=== PATIENT | male | born 1985 | race American Indian/Alaskan Native ===

== ENCOUNTER 2023-07-21 15:05 | Outpatient (CLI) | payer OTHER ==
--- NOTE | 2023-07-21 16:04 | Sleep Patient Instructions ---
Sleep Center Visit Summary - Patient Visit Information Reason for Visit: Initial consult for evaluation of sleep disordered breathing and other sleep issues. - Patient Instructions Instructions Attached: Sleep Study, Sleep Study Home Monitor Additional Instructions: You will be completing a sleep study, either an in-lab polysomnography (PSG) or home sleep study (HST). You will follow-up in the sleep care office after the sleep study is completed to hear the results and talk about therapy, if needed. You will be called by our office staff to schedule this appointment, but you may contact us with any questions. - Clinic Information Contact: [facility] [address] [place] [id number] [email or web address] T: [phone]
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
[2023-07-21 16:21] VITALS: BP 157/105; O2SAT 96
== END 2023-07-21 15:06 | disposition home or self-care (01) ==
LOC: SC 15:05
PROVIDERS: ATTEND Nurse Practitioner Family
DX: R06.83 Snoring (principal); G47.8 Other sleep disorders; R06.81 Apnea, not elsewhere classified; E66.9 Obesity, unspecified; Z68.36 Body mass index [BMI] 36.0-36.9, adult; R51.9 Headache, unspecified; R41.89 Other symptoms and signs involving cognitive functions and awareness; G47.10 Hypersomnia, unspecified; Z87.891 Personal history of nicotine dependence
CPT/HCPCS: 99203; 99212

== ENCOUNTER 2023-08-12 20:34 | Outpatient (CLI) | payer OTHER | END 2023-08-12 20:35 | disposition home or self-care (01) | LOC: SC 20:34 | PROVIDERS: ATTEND Nurse Practitioner Family | DX: G47.33 Obstructive sleep apnea (adult) (pediatric) (principal); G47.61 Periodic limb movement disorder | CPT/HCPCS: 95810 ==

== ENCOUNTER 2023-09-07 15:02 | Outpatient (CLI) | payer OTHER ==
--- NOTE | 2023-09-07 15:26 | Sleep Patient Instructions ---
Sleep Center Visit Summary - Patient Visit Information Reason for Visit: Sleep study follow-up - Patient Instructions Instructions Attached: CPAP Additional Instructions: You are being started on CPAP therapy with pressure setting at 4-15 cmH2O. You will need to call the sleep care office to set up your follow up once you have your CPAP machine to check compliance and response to therapy at that time. You may call the office with any concerns about pressure feeling too low or too much for adjustment, if needed. You should contact DME supplier for any questions or concerns about mask or equipment. Please call office to schedule a follow up appointment in the sleep care office one month after obtaining new device. - Clinic Information Contact: [facility] [address] [place] [address] [email or web address] T: [phone]
--- NOTE | 2023-09-07 15:29 | SLEEP CARE CONSULTATION ---
Information from patient questionnaire entered by Tameka Chiu. I have reviewed and concur with the information entered by Tameka Chiu. This document represents the service I personally performed and the decisions made by me, Eda Maguire ARNP. History of Present Illness Service Date and Time: 09/07/2023 1502 Initial [place] Sleepiness Scale score: 15 (07/21/23) Current [place] Sleepiness Scale score: 19 (09/07/23) Additional HPI information: YASSINE MARVIN returns for follow up and results of the recently performed polysomnography. The sleep study showed mild obstructive sleep apnea with an average AHI of 7.1 and paras oxygen saturation of 84%. He also had mild PLMs not contributing to sleep fragmentation. I explained the pathophysiology behind obstructive sleep apnea. We then spent quite a bit of time discussing different treatment options. For mild obstructive sleep apnea, surgery and oral appliance are alternatives to nasal CPAP therapy but in moderate or severe cases, nasal CPAP is the most effective and reliable treatment. Because apnea is primarily in supine position, then positional management therapy could be effective. Methods discussed such as positioning with pillows, using a T-shirt with tennis balls in the back or commercial products that have a pillow format on back to prevent supine sleep. I reviewed the impact of weight changes on sleep apnea and strongly recommended losing weight. After some discussion, the patient opted to go with the nasal CPAP therapy. Nasal autoCPAP set at 4-15 cmH20 will be ordered with rationale explained. A manual titration study will be ordered if unable to find optimal pressure with office adjustments. I explained how CPAP machine works and what to expect when using the machine. Using CPAP every night in order to get used to it was emphasized. Patient advised to put CPAP mask on before getting into bed so as not to fall asleep without CPAP. To assist acclimation to CPAP use, it could also be used for a short time during day while reading or watching TV. The patient was instructed to call the CPAP supplier to discuss any mechanical problem that may occur. If the mask given is uncomfortable or is difficult to keep on through the night even with adjustment, contact the CPAP supplier as many will replace with another mask style if notified before 30 days. If snoring or perceives is not getting enough air or too much air from the machine, notify this office. Patient counseled not drink alcohol less than 4 hours before bedtime as it can increase snoring and apnea. Patient was cautioned about risks of drowsy driving until sleepiness symptoms resolve. Sleep Study - Results Type of Sleep Study: Polysomnography (COMPLETED 08/10/23) Prior sleep studies: No Polysomnography/Home Sleep Study results: IMPRESSION: The quality of the study is good. The patient had normal sleep efficiency. The sleep architecture was abnormal for sleep fragmentation and reduced amount of time spent in slow wave sleep (N3). Respiratory monitoring showed mild obstructive sleep apnea-hypopnea (AHI = 7.1) associated with frequent arousals, oxyhemoglobin desaturation and mild hypoxia (paras oxygen saturation of 84%). The respiratory events occurred almost exclusively during supine REM sleep (supine AHI = 17.0; non-supine = 2.08). Snore was light to loud in intensity. There was mild periodic leg movement of sleep not contributing to the sleep fragmentation. Cardiac rhythm was normal sinus rhythm without significant arrhythmia. No abnormal behavior (parasomnia) observed during the night. Allergies and Home Medications Known drug allergies: No Drug allergies reviewed: Yes Home medication list reviewed: Yes (no changes) Allergy and home medication list: Allergies No Known Drug Allergies Allergy (Verified 09/05/23 10:33) Review of Systems Review of systems same as previous: Yes (NO CHANGE) Physical Exam Vital signs obtained and entered by: TAMEKA Sousa MA Blood Pressure: 155/78 (RIGHT ARM) Cuff size: long Heart Rate: 68 O2 Saturation: 96 Height: 6 ft Weight: 268 lb 6.4 oz Body Mass Index: 36.3 BMI Classification: Obese Impression and Plan 1. Obstructive Sleep Apnea-Hypopnea Syndrome, mild, with lowest oxygen saturation of 84%. Obviously this is the cause of the patients symptoms of unrefreshed sleep, and excessive daytime sleepiness. As mentioned above, the patient will be started on nasal autoCPAP therapy with pressure set at 4-15 cmH2 O. A manual titration study will be completed if unable to find optimal treatment pressure with office adjustments. Compliance guidelines also reviewed. A copy of compliance guidelines will be given for reference at check out. Because the apnea is more severe supine, I instructed to avoid sleeping supine using pillow positioning until able to start CPAP use. 2. Hypoxemia, mild, with a paras oxygen saturation of 84% and 4.2 minutes spent under 90%. The baseline oxygen saturation was normal with an average oxygen saturation of 92%. 3. Periodic limb movement, mild, that did not fragment patients sleep. Periodic limb movement of sleep (PLMS) is characterized by episodes of repetitive limb movements that occur during sleep and usually involve the lower limbs. The etiology is unknown. Sleep hygiene methods can also improve sleep as well as lifestyle changes such as regular exercise. Patient was advised that no treatment is needed at this time. If symptoms increase, then further evaluation is indicated. 4. Obesity, unspecified. Currently patients BMI is 36.3. Obesity increases the risk of apnea, CPAP pressure requirements and overall health risks especially cardiovascular and diabetes. Thus patient is advised to lose weight. * Nasal auto CPAP therapy, pressure at 4-15 cm H2O. * Attempt to lose weight. * Avoid alcohol consumption near bedtime. * Avoid supine sleep until using CPAP. * The patient is again cautioned about driving until sleepiness completely resolves. * Return one month after CPAP obtained. I will assess response to therapy and compliance at that time. Counseling Topics: Sleeping position, Weight loss health impact Prescriptions: Auto CPAP Follow up with Sleep Care in: other (Compliance followup) Visit Type: In Office Time Spent with Patient (minutes): 20 Provider Statement: I spent 100% of the Face to Face Visit with the patient with greater than 50% spent counseling the patient and coordination of care.
[2023-09-07 15:33] VITALS: BP 155/78; O2SAT 96
== END 2023-09-07 15:03 | disposition home or self-care (01) ==
LOC: SC 15:02
PROVIDERS: ATTEND Nurse Practitioner Family
DX: G47.33 Obstructive sleep apnea (adult) (pediatric) (principal); R09.02 Hypoxemia; G47.61 Periodic limb movement disorder; E66.9 Obesity, unspecified; Z68.36 Body mass index [BMI] 36.0-36.9, adult
CPT/HCPCS: 99212; 99213

== ENCOUNTER 2024-01-20 14:42 | Outpatient (CLI) | payer OTHER ==
--- NOTE | 2024-01-20 15:23 | Sleep Patient Instructions ---
Sleep Center Visit Summary - Patient Visit Information Reason for Visit: First compliance for PAP therapy - Patient Instructions Additional Instructions: You were here for follow up of CPAP therapy. You will be continued on CPAP therapy with pressure at 10-14 cmH2O. Please let us know if the pressure change is uncomfortable and we can make further adjustments of the pressure. You should follow up with sleep care in 1-2 months. You may contact us sooner for any questions or concerns. - Clinic Information Contact: [facility] [address] [place] [address] [email or web address] T: [phone]
--- NOTE | 2024-01-20 15:26 | SLEEP CARE CONSULTATION ---
Information from patient questionnaire entered by Lucas Chiu. I have reviewed and concur with the information entered by Lucas Chiu. This document represents the service I personally performed and the decisions made by , Eda Maguire ARNP. History of Present Illness Service Date and Time: 01/20/2024 144 Previous diagnosis: Mild, Obstructive Sleep Apnea-Hypopnea Syndrome AHI: 7.1 (08/10/23) Reason for follow up: first compliance Equipment type: CPAP (RESMED 11 S/U 10/21/23) Equipment obtained from: Other ([facility]; getting supplies) Mask style: Nasal Mask brand: Resmed (AirFit [id number]) Backup mask available: No Last cushion change: last month Prior sleep studies: No Type of Sleep Study: Polysomnography (COMPLETED 08/10/23) HPI additional information: YASSINE MARVIN was diagnosed to have mild, AHI 7.1, obstructive sleep apnea- hypopnea syndrome and returned today for CPAP therapy first compliance follow- up. Sleep Study - Results Type of Sleep Study: Polysomnography (COMPLETED 08/10/23) Prior sleep studies: No CPAP Compliance Data - Data Reviewed with Patient Average duration of nightly device use: 4 HRS 35 MINS Compliance rate %: 83 (10/21/23-11/19/23; 29/30 days used) Current pressure setting (cmH2O): 4-15 (median 9.1, avg 13.6, max 14.2) Average residual AHI: 1.0 Central apnea: 0.1 Obstructive apnea: 0.2 Hypopnea: 0.7 Average large leak: 0.1 L/min Subjective Missed days of use due to: reports: travel Patient concerns: reports: air blowing in eyes (just needs adjustment of mask), mask leak noise, nasal congestion, dry mouth, nose, throat, other (DOES NOT TRACK HRS USED). denies: aerophagia, mask discomfort, condensation in mask/hose, epistaxis Observed to snore while using device: No Current pressure setting perceived as: comfortable On therapy, patient: reports: sleeping better, awakening more refreshed, being more awake and alert during the day, more rested overall. denies: drowsiness while driving Initial [place] Sleepiness Scale score: 15 (07/21/23) Current [place] Sleepiness Scale score: 9 (01/20/24) Allergies and Home Medications Known drug allergies: No Drug allergies reviewed: Yes Home medication list reviewed: Yes (no changes) Allergy and home medication list: Allergies No Known Drug Allergies Allergy (Verified 01/20/24 14:44) Review of Systems Review of systems same as previous: Yes (no changes) Physical Exam Vital signs obtained and entered by: LUCAS Sousa MA Blood Pressure: 139/74 (RIGHT ARM) Cuff size: long Heart Rate: 73 O2 Saturation: 96 Height: 6 ft Weight: 266 lb Body Mass Index: 36.1 BMI Classification: Obese Impression and Plan 1. Obstructive Sleep Apnea-Hypopnea Syndrome, mild, with good treatment compliance and good apnea control. On CPAP therapy, the patient has better sleep quality and is more rested overall. 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 He did reach compliance in his initial period with his CPAP. He has had some issues with his mask leaking because he likes to sleep on his side. I encouraged him to try a CPAP pillow which will help reduce mask dislodgment causing leaks. He voiced understanding. The patients pressure will be changed to autoCPAP 10-14 cmH20 to reflect pressure being used. Patient advised to contact me if pressure change is uncomfortable so that it can be adjusted. Goals for apnea control discussed. Patient's apnea severity and rationale for treatment to reduce apnea, improve sleep quality and reduce cardiovascular and cerebrovascular events was reviewed. 2. Obesity, unspecified. Currently patients BMI is 36.1. Obesity increases the risk of apnea, CPAP pressure requirements and overall health risks especially cardiovascular and diabetes. Thus patient is advised to lose weight. * Change auto CPAP pressure to 10-14 cmH2O * Notify me if snoring with mask or feeling that the pressure is too much or too little * Attempt to lose weight * Call this office if any problems using CPAP * Return for follow up in 1-2 months, or sooner if concerns arise Counseling Topics: Spare mask, Weight loss health impact Follow up with Sleep Care in: 1-2 months Visit Type: In Office Time Spent with Patient (minutes): 21 Provider Statement: I spent 100% of the Face to Face Visit with the patient with greater than 50% spent counseling the patient and coordination of care.
[2024-01-20 15:35] VITALS: BP 139/74; O2SAT 96
== END 2024-01-20 14:43 | disposition home or self-care (01) ==
LOC: SC 14:42
PROVIDERS: ATTEND Nurse Practitioner Family
DX: G47.33 Obstructive sleep apnea (adult) (pediatric) (principal); E66.9 Obesity, unspecified; Z68.36 Body mass index [BMI] 36.0-36.9, adult
CPT/HCPCS: 99212; 99213